=== PATIENT | female | born 1975 | race Caucasian/White ===

== ENCOUNTER → 2017-05-15 | Outpatient (CLI) | payer OTHER ==
[~2017-05-15] MED LIST: CLIN-62; CODE-54; HYDR-3583; HYOS0.1283 SL; LEVOTHYROXINE; METH4TAB PO; ONDA4TAB8 PO; PANT40TA2 PO; PENICILLIN; [UNRECOGNIZED DRUG - OTHER]
--- NOTE | 2017-05-15 10:40 | Diagnostic Imaging Report ---
EXAMINATION: Bilateral diagnostic mammography with a Computer Aided Detection (CAD) system. COMPARISON: 07/09/2014. INDICATION: Bilateral palpable lumps. FINDINGS: The breasts are composed of extremely dense parenchyma which would decrease mammographic sensitivity. At the lateral aspect of the left breast, there is a palpable area marked with a BB with an underlying circumscribed lobulated mass. This was seen on the 2013 exam and is probably the same lesion, most likely a cyst. The right breast demonstrates a marker at the medial aspect with no definite underlying lesion seen by mammography. At posterior depth of the medial aspect of the right breast, there is a circumscribed mass also seen. This is not well appreciated on the previous exam. No suspicious calcifications. IMPRESSION: Bilateral circumscribed breast masses in the lateral aspect of the left breast and medial aspect of the right breast are favored to be benign such as cysts. An ultrasound evaluation is pending. ACR BI-RADS Category 0: Incomplete. (Needs additional imaging evaluation). Result letter will be mailed to the patient. Note: At least 10% of breast cancer is not imaged by mammography. Dictated by: Dictated on workstation # [id number]
--- NOTE | 2017-05-15 10:42 | Diagnostic Imaging Report ---
EXAMINATION: Bilateral breast ultrasound. INDICATION: Bilateral palpable lumps and masses seen on mammography. FINDINGS: In the left breast at the 1:30 o'clock position 7 cm from the nipple, there is a 1.8 x 1.1 x 2.4 cm cyst with minimal internal debris. No solid component or internal vascularity is seen. Through transmission is noted. In the right breast, the palpable area corresponds with a 7 mm simple cyst at the 4 o'clock zone 5 cm from the nipple. IMPRESSION: The palpable lumps correspond to simple and minimally complicated cysts with no solid lesion seen. Annual screening mammograms are recommended. ACR BI-RADS Category 2: Benign findings. Dictated by: Dictated on workstation # [id number]
== END ==
LOC: RAD 08:27
PROVIDERS: ATTEND Family Medicine
DX: N60.11 Diffuse cystic mastopathy of right breast (principal)
CPT/HCPCS: 76642; 77066

== ENCOUNTER 2019-08-14 16:48 | Emergency (ER) | payer SELFPAY ==
[~2019-08-14] VITALS: Ht 157 cm; Wt 61.5 kg
[2019-08-14] MEDS ORDERED: ANTACID SUSP 30 ML UDC (MYLANTA) PO ONE (17:15)
[2019-08-14] MEDS ORDERED: LIDOCAINE 2% VISCOUS 15 ML UDC PO ONE (17:15)
[2019-08-14] MEDS ORDERED: ONDANSETRON 4 MG/2 ML (SDV) Z0FRAN IVP ONE (17:15)
[2019-08-14] MEDS ORDERED: LEVO88TA54 (17:15)
--- NOTE | 2019-08-14 17:15 | ED Abdominal Pain ---
General Chief Complaint: Abdominal/GI Problems Stated Complaint: ABD PAIN Nursing Triage Note: EPIGASTRIC PAIN THAT RADIATES INTO BACK WITH NAUSEA STARTING ONE WEEK AGO. Sepsis Screen: No Definite Risk Source of Information: Patient Exam Limitations: No Limitations History of Present Illness Date Seen by Provider: Aug 14, 2019 Time Seen by Provider: 16:56 Initial Comments To ER with reports of epigastric abdominal pain that radiates straight through to her back times one week constant and she cannot identify any exacerbating or alleviating factors. She's had nausea without vomiting, she's had normal bowel movements. No fevers or chills no history of this. She has also had fatigue. She saw her primary care provider one week ago for the fatigue but didn't mention the abdominal pain because she assumed it to just be from bloating at that time. Timing/Duration: 1 Week Severity/Quality: Moderate Location: Epigastric Radiation: No Radiation Activities at Onset: None Associated Symptoms: Fatigue, Nausea/Vomiting Allergies and Home Medications Allergies Coded Allergies: clindamycin (Verified Adverse Reaction, Intermediate, SWOLLEN TONGUE, RASH, 07/17/16) Home Medications Cefuroxime Axetil 250 Mg Tablet, 250 MG PO BID Prescribed by: KIRTI BAKER on 08/14/19 1821 Patient Home Medication List Home Medication List Reviewed: Yes Review of Systems Review of Systems Constitutional: see HPI, malaise EENTM: No Symptoms Reported Cardiovascular: No Symptoms Reported Gastrointestinal: See HPI, Abdominal Pain; Denies Constipated, Denies Diarrhea; Nausea Genitourinary: No Symptoms Reported Musculoskeletal: no symptoms reported Skin: no symptoms reported Psychiatric/Neurological: No Symptoms Reported Endocrine: No Symptoms Reported Hematologic/Lymphatic: No Symptoms Reported Past Gorfnzi-Hftjjf-Uwgvib Hx Patient Social History Alcohol Use: Denies Use Recreational Drug Use: No Smoking Status: Current Everyday Smoker Type Used: Cigarettes Recent Foreign Travel: No Contact w/Someone Who Travel: No Recent Infectious Disease Expo: No Recent Hopitalizations: No Seasonal Allergies Seasonal Allergies: No Past Medical History Surgeries: Yes Abdominal, Breast, Ear Surgery, Renal, Tubal Ligation Respiratory: No Cardiac: No Neurological: No : No Last Menstrual Period: Aug 14, 2019 Reproductive Disorders: No CHHA History: Tubal Ligation Gastrointestinal: No Musculoskeletal: No Endocrine: Yes (DAR'S / GRAVE'S DISEASE) Hypothyroidsim Cancer: No Psychosocial: Yes Sleep Difficulties, Anxiety Integumentary: No Blood Disorders: No Physical Exam Vital Signs Vital Signs - First Documented 08/14/19 16:55 Temp 36.7 Pulse 121 Resp 16 B/P (MAP) 168/105 (126) Pulse Ox 99 O2 Delivery Room Air Capillary Refill : Less Than 3 Seconds Height/Weight/BMI Height: 5'2" Weight: 134lbs. oz. 60.331392ds; 24.00 BMI Method:Stated General Appearance: WD/WN, no apparent distress HEENT: PERRL/EOMI, normal ENT inspection Respiratory: no respiratory distress, no accessory muscle use Gastrointestinal: normal bowel sounds, soft, tenderness (epigastric. Midline abdominal incision from a remote history of nephropexy. Otherwise no abdominal surgeries.) Extremities: normal range of motion, non-tender Neurologic/Psychiatric: alert, normal mood/affect, oriented x 3 Skin: normal color, warm/dry Progress/Results/Core Measures Results/Orders Lab Results Laboratory Tests Test 08/14/19 17:09 08/14/19 17:35 Range/Units White Blood Count 10.2 4.3-11.0 10^3/uL Red Blood Count 3.96 L 4.35-5.85 10^6/uL Hemoglobin 13.4 11.5-16.0 G/DL Hematocrit 39 35-52 % Mean Corpuscular Volume 99 80-99 FL Mean Corpuscular Hemoglobin 34 25-34 PG Mean Corpuscular Hemoglobin Concent 34 32-36 G/DL Red Cell Distribution Width 12.4 10.0-14.5 % Platelet Count 325 130-400 10^3/uL Mean Platelet Volume 9.8 7.4-10.4 FL Neutrophils (%) (Auto) 60 42-75 % Lymphocytes (%) (Auto) 31 12-44 % Monocytes (%) (Auto) 7 0-12 % Eosinophils (%) (Auto) 1 0-10 % Basophils (%) (Auto) 1 0-10 % Neutrophils # (Auto) 6.1 1.8-7.8 X 10^3 Lymphocytes # (Auto) 3.2 1.0-4.0 X 10^3 Monocytes # (Auto) 0.7 0.0-1.0 X 10^3 Eosinophils # (Auto) 0.1 0.0-0.3 10^3/uL Basophils # (Auto) 0.1 0.0-0.1 10^3/uL Sodium Level 140 135-145 MMOL/L Potassium Level 3.4 L 3.6-5.0 MMOL/L Chloride Level 110 H 98-107 MMOL/L Carbon Dioxide Level 20 L 21-32 MMOL/L Anion Gap 10 5-14 MMOL/L Blood Urea Nitrogen 10 7-18 MG/DL Creatinine 0.84 0.60-1.30 MG/DL Estimat Glomerular Filtration Rate > 60 BUN/Creatinine Ratio 12 Glucose Level 97 70-105 MG/DL Calcium Level 9.4 8.5-10.1 MG/DL Corrected Calcium 8.5-10.1 MG/DL Total Bilirubin 0.5 0.1-1.0 MG/DL Aspartate Amino Transf (AST/SGOT) 13 5-34 U/L Alanine Aminotransferase (ALT/SGPT) 13 0-55 U/L Alkaline Phosphatase 53 40-136 U/L Total Protein 7.2 6.4-8.2 GM/DL Albumin 4.6 H 3.2-4.5 GM/DL Lipase 15 8-78 U/L Thyroid Stimulating Hormone (TSH) 9.54 H 0.35-4.94 UIU/ML Free Thyroxine 1.18 0.70-1.48 NG/DL Urine Color RED H Urine Clarity BLOODY H Urine pH 5.0 5-9 Urine Specific [place] 1.025 H 1.016-1.022 Urine Protein 3+ H NEGATIVE Urine Glucose (UA) TRACE H NEGATIVE Urine Ketones 2+ H NEGATIVE Urine Nitrite POSITIVE NEGATIVE Urine Bilirubin NEGATIVE NEGATIVE Urine Urobilinogen 4.0 < = 1.0 MG/DL Urine Leukocyte Esterase 2+ H NEGATIVE Urine RBC (Auto) 3+ H NEGATIVE Urine RBC TNTC H /HPF Urine WBC 50-100 H /HPF Urine Crystals NONE /LPF Urine Bacteria FEW H /HPF Urine Casts NONE /LPF Urine Mucus NEGATIVE /LPF Urine Culture Indicated YES My Orders Orders - KIRTI BAKER APRN Cbc With Automated Diff (08/14/19 17:08) Comprehensive Metabolic Panel (08/14/19 17:08) Lipase (08/14/19 17:08) Ua Culture If Indicated (08/14/19 17:08) Thyroid Stimulating Hormone (08/14/19 17:08) Free T4 (Free Thyroxine) (08/14/19 17:08) Ed Iv/Invasive Line Start (08/14/19 17:08) Ct Abdomen/Pelvis W (08/14/19 17:08) Antacid Suspension (Mylanta Suspension (08/14/19 17:15) Lidocaine 2% Viscous 15 Ml (Xylocaine Vi (08/14/19 17:15) Ondansetron Injection (Zofran Injectio (08/14/19 17:15) Iohexol Injection (Omnipaque 350 Mg/Ml 1 (08/14/19 17:30) Received Contrast (Hold Metformin- Contr (08/14/19 17:30) Ns (Ivpb) (Sodium Chloride 0.9% Ivpb Bag (08/14/19 17:30) Urine Culture (08/14/19 17:35) Medications Given in ED Current Medications Medications Dose Ordered Sig/Christiana Route Start Time Stop Time Status Last Admin Dose Admin Al Hydrox/Mg Hydrox/Simethicone 30 ml ONCE ONCE PO 08/14/19 17:15 08/14/19 17:16 DC 08/14/19 17:19 30 ML Iohexol 100 ml ONCE ONCE IV 08/14/19 17:30 08/14/19 17:31 DC 08/14/19 17:48 77 ML Lidocaine HCl 10 ml ONCE ONCE PO 08/14/19 17:15 08/14/19 17:16 DC 08/14/19 17:19 10 ML Ondansetron HCl 8 mg ONCE ONCE IVP 08/14/19 17:15 08/14/19 17:16 DC 08/14/19 17:20 8 MG Sodium Chloride 100 ml ONCE ONCE IV 08/14/19 17:30 08/14/19 17:31 DC 08/14/19 17:49 80 ML Vital Signs/I&O 08/14/19 16:55 Temp 36.7 Pulse 121 Resp 16 B/P (MAP) 168/105 (126) Pulse Ox 99 O2 Delivery Room Air Blood Pressure Mean: 126 Diagnostic Imaging Diagonstic Imaging: CT Comments 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 TECHNIQUE: Multiple contiguous axial images were obtained through the abdomen and pelvis after administration of intravenous contrast. Auto Exposure Controls were utilized during the CT exam to meet ALARA standards for radiation dose reduction. INDICATION: Epigastric pain. COMPARISON: 07/17/2016. FINDINGS: Lung bases are clear. The liver, gallbladder, pancreas, spleen, adrenals, kidneys, collecting systems and bladder are negative. No free intraperitoneal air or fluid. No lymphadenopathy. No evidence of bowel obstruction or inflammation. Normal appendix. Reproductive structures are grossly unremarkable. No lymphadenopathy. No acute osseous findings. IMPRESSION: No acute CT findings in the abdomen or pelvis. Dictated on workstation # [id number] Dict: 08/14/19 1759 Trans: 08/14/19 1808 [facility] [id number] Interpreted by: SHERRI ALFREDO MD Electronically signed by: Departure Communication (Admissions) Marked hematuria, she is on her menstrual periods however. 1830-She states that she does follow with Jimbo Rosario now instead of Dr. Chun. I set her up with a outpatient order for hepatobiliary scan with results to be sent to Dr. Jimbo Rosario. Impression Primary Impression: Epigastric abdominal pain Disposition: HOME, SELF-CARE Condition: Stable Departure-Patient Inst. Decision time for Depature: 18:20 Referrals: DILCIA CHUN DO (PCP/Family) Primary Care Physician Patient Instructions: Acute Abdomen (Belly Pain), Adult (DC), Urinary Tract Infection, Adult (DC) Add. Discharge Instructions: 1. Antibiotics as directed 2. Follow-up with Dr. Chun. Call tomorrow for an appointment. I'll fax your records to them. All discharge instructions reviewed with patient and/or family. Voiced understanding. Scripts Cefuroxime Axetil (Cefuroxime) 250 Mg Tablet 250 MG PO BID, #10 TAB Prov: KIRTI BAKER APRN 08/14/19 Copy Copies To 1: JIMBO ROSARIO MD, PETER J APRN Aug 14, 2019 17:15
[2019-08-14 17:17] LABS: BASOPHILS # (AUTO) 0.1 10^3/uL (0.0-0.1); BASOPHILS % (AUTO) 1 % (0-10); EOSINOPHILS # (AUTO) 0.1 10^3/uL (0.0-0.3); EOSINOPHILS % (AUTO) 1 % (0-10); HEMATOCRIT 39 % (35-52); HEMOGLOBIN 13.4 G/DL (11.5-16.0); LYMPHOCYTES # (AUTO) 3.2 X 10^3 (1.0-4.0); LYMPHOCYTES % (AUTO) 31 % (12-44); MEAN CORPUSCULAR HEMOGLOBIN 34 PG (25-34); MEAN CORPUSCULAR HGB CONC 34 G/DL (32-36); MEAN CORPUSCULAR VOLUME 99 FL (80-99); MEAN PLATELET VOLUME 9.8 FL (7.4-10.4); MONOCYTES # (AUTO) 0.7 X 10^3 (0.0-1.0); MONOCYTES % (AUTO) 7 % (0-12); NEUTROPHILS # (AUTO) 6.1 X 10^3 (1.8-7.8); NEUTROPHILS % (AUTO) 60 % (42-75); PLATELET COUNT 325 10^3/uL (130-400); RED CELL DISTRIBUTION WIDTH 12.4 % (10.0-14.5); WHITE BLOOD COUNT 10.2 10^3/uL (4.3-11.0)
[2019-08-14] MEDS ORDERED: HOLD METFORMIN - RECEIVED CONTRAST 20 ML VIAL IV SCH (17:30)
[2019-08-14] MEDS ORDERED: NS 100 ML (IVPB) BAG IV ONE (17:30)
[2019-08-14] MEDS ORDERED: IOHEXOL 350 MG/ML 100 ML (OMNIPAQUE 350) VIAL IV ONE (17:30)
[2019-08-14 17:45] LABS: ALANINE AMINOTRANSFERASE 13 U/L (0-55); ALBUMIN 4.6 GM/DL (3.2-4.5); ALKALINE PHOSPHATASE 53 U/L (40-136); BILIRUBIN,TOTAL 0.5 MG/DL (0.1-1.0); BUN/CREATININE RATIO 12; CALCIUM 9.4 MG/DL (8.5-10.1); CARBON DIOXIDE 20 MMOL/L (21-32); CHLORIDE 110 MMOL/L (98-107); CREATININE SERUM 0.84 MG/DL (0.60-1.30); GFR ESTIMATED > 60; GLUCOSE 97 MG/DL (70-105); LIPASE 15 U/L (8-78); POTASSIUM 3.4 MMOL/L (3.6-5.0); SODIUM 140 MMOL/L (135-145); TOTAL PROTEIN 7.2 GM/DL (6.4-8.2)
[2019-08-14 17:49] LABS: BILIRUBIN,URINE NEGATIVE (NEGATIVE); GLUCOSE, URINE (UA) TRACE (NEGATIVE); KETONES,URINE 2+ (NEGATIVE); LEUKOCYTE ESTERASE ,URINE 2+ (NEGATIVE); NITRITE,URINE POSITIVE (NEGATIVE); PROTEIN,URINE 3+ (NEGATIVE)
[2019-08-14 17:53] LABS: CLARITY,URINE BLOODY; COLOR,URINE RED
[2019-08-14 17:54] LABS: RBC,URINE TNTC /HPF
[2019-08-14 17:59] LABS: WBC,URINE 50-100 /HPF
[2019-08-14 18:00] LABS: BACTERIA,URINE FEW /HPF
[2019-08-14 18:05] LABS: FREE T4 (FREE THYROXINE) 1.18 NG/DL (0.70-1.48)
--- NOTE | 2019-08-14 18:09 | Diagnostic Imaging Report ---
PROCEDURE: CT abdomen and pelvis with contrast. TECHNIQUE: Multiple contiguous axial images were obtained through the abdomen and pelvis after administration of intravenous contrast. Auto Exposure Controls were utilized during the CT exam to meet ALARA standards for radiation dose reduction. INDICATION: Epigastric pain. COMPARISON: 07/17/2016. FINDINGS: Lung bases are clear. The liver, gallbladder, pancreas, spleen, adrenals, kidneys, collecting systems and bladder are negative. No free intraperitoneal air or fluid. No lymphadenopathy. No evidence of bowel obstruction or inflammation. Normal appendix. Reproductive structures are grossly unremarkable. No lymphadenopathy. No acute osseous findings. IMPRESSION: No acute CT findings in the abdomen or pelvis. Dictated by: Dictated on workstation # [id number]
[2019-08-14] MEDS ORDERED: CEFU250T80 PO (18:21)
[2019-08-14 18:30] VITALS: BP 123/74
== END 2019-08-14 18:30 | disposition home or self-care (01) ==
LOC: EDUNIT# 16:48 → ER 16:50
DX: R10.13 Epigastric pain (principal); E03.9 Hypothyroidism, unspecified; F41.9 Anxiety disorder, unspecified; F17.210 Nicotine dependence, cigarettes, uncomplicated; Z88.1 Allergy status to other antibiotic agents; Z98.51 Tubal ligation status
CPT/HCPCS: 36415; 74177; 80053; 81000; 83690; 84439; 84443; 85025; 87088; 96374

== ENCOUNTER 2020-02-09 10:23 | Emergency (ER) | payer SELFPAY ==
[~2020-02-09] VITALS: Ht 157.5 cm; Wt 67.1 kg
[~2020-02-09 10:23] MED LIST changes: +CEFU250T80 PO; +LEVO88TA54
--- NOTE | 2020-02-09 10:45 | NUR ---
Covid-19 swab obtained by this RN et walked to lab by edie.
--- NOTE | 2020-02-09 10:46 | ED Cough/URI ---
General Stated Complaint: COUGH/SOB Source: patient Exam Limitations: no limitations History of Present Illness Date Seen by Provider: Feb 09, 2020 Time Seen by Provider: 10:43 Initial Comments to ER with a four-day history of productive cough, low-grade fever not above 100, runny nose, sore throat. 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 One of her patients was swabbed for coronavirus on Monday of last week but has not gotten the results yet. Patient does smoke one half pack of cigarettes per day. she Suspects that she has bronchitis because she's had this before. Timing/Duration: constant Severity/Quality: productive cough Associated Symptoms: cough, fever/chills, shortness of breath, sore throat Allergies and Home Medications Allergies Coded Allergies: clindamycin (Verified Adverse Reaction, Intermediate, SWOLLEN TONGUE, RASH, 07/17/16) Home Medications Albuterol Sulfate 1 Puff Puff, 2 PUFF IH Q4H PRN for WHEEZING 1 PUFF = 90 MCG Prescribed by: KIRTI BAKER on 02/09/20 1050 Cefuroxime Axetil 250 Mg Tablet, 250 MG PO BID Prescribed by: KIRTI BAKER on 08/14/19 1821 Cefuroxime Axetil 500 Mg Tablet, 500 MG PO BID Prescribed by: KIRTI BAKER on 02/09/20 1050 Guaifenesin/Dextromethorphan 1 Each Tbmp.12hr, 1 EACH PO BID Prescribed by: KIRTI BAKER on 02/09/20 1050 Patient Home Medication List Home Medication List Reviewed: Yes Review of Systems Review of Systems Constitutional: see HPI, malaise EENTM: see HPI, nose congestion, throat pain Respiratory: see HPI, cough, short of breath Cardiovascular: no symptoms reported Genitourinary: no symptoms reported Musculoskeletal: no symptoms reported Skin: no symptoms reported Psychiatric/Neurological: No Symptoms Reported Hematologic/Lymphatic: No Symptoms Reported Immunological/Allergic: no symptoms reported Past Uaydueh-Tsaqrv-Inodvr Hx Patient Social History Type Used: Cigarettes Recent Hopitalizations: No Seasonal Allergies Seasonal Allergies: No Past Medical History Surgeries: Yes Abdominal, Breast, Ear Surgery, Renal, Tubal Ligation Respiratory: No Cardiac: No Neurological: No 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 oz. 60.867922hy; 24.00 BMI Method:Stated General Appearance: WD/WN, no apparent distress, other (is alert and oriented speaks in full sentences oxygen saturation 98% on room air her right little high at 115. She did cough and expectorate somepurulent phlegm.) Eyes: Bilateral Eye Normal Inspection, Bilateral Eye PERRL, Bilateral Eye EOMI HEENT: PERRL/EOMI, normal ENT inspection Neck: non-tender, full range of motion Respiratory: normal breath sounds, no respiratory distress, no accessory muscle use Cardiovascular: no murmur, tachycardia Gastrointestinal: normal bowel sounds, soft Neurologic/Psychiatric: alert, normal mood/affect, oriented x 3 Skin: normal color Progress/Results/Core Measures Suspected Sepsis SIRS Temperature: Pulse: Respiratory Rate: Laboratory Tests 02/09/20 10:45: White Blood Count 7.3 Blood Pressure / Mean: Laboratory Tests 02/09/20 10:45: Creatinine 0.77, Platelet Count 278 Results/Orders Lab Results Laboratory Tests Test 02/09/20 10:45 Range/Units White Blood Count 7.3 4.3-11.0 10^3/uL Red Blood Count 4.04 L 4.35-5.85 10^6/uL Hemoglobin 13.4 11.5-16.0 G/DL Hematocrit 39 35-52 % Mean Corpuscular Volume 97 80-99 FL Mean Corpuscular Hemoglobin 33 25-34 PG Mean Corpuscular Hemoglobin Concent 34 32-36 G/DL Red Cell Distribution Width 12.5 10.0-14.5 % Platelet Count 278 130-400 10^3/uL Mean Platelet Volume 10.2 7.4-10.4 FL Neutrophils (%) (Auto) 60 42-75 % Lymphocytes (%) (Auto) 26 12-44 % Monocytes (%) (Auto) 9 0-12 % Eosinophils (%) (Auto) 4 0-10 % Basophils (%) (Auto) 1 0-10 % Neutrophils # (Auto) 4.4 1.8-7.8 X 10^3 Lymphocytes # (Auto) 1.9 1.0-4.0 X 10^3 Monocytes # (Auto) 0.7 0.0-1.0 X 10^3 Eosinophils # (Auto) 0.3 0.0-0.3 10^3/uL Basophils # (Auto) 0.1 0.0-0.1 10^3/uL Sodium Level 137 135-145 MMOL/L Potassium Level 4.0 3.6-5.0 MMOL/L Chloride Level 106 98-107 MMOL/L Carbon Dioxide Level 19 L 21-32 MMOL/L Anion Gap 12 5-14 MMOL/L Blood Urea Nitrogen 12 7-18 MG/DL Creatinine 0.77 0.60-1.30 MG/DL Estimat Glomerular Filtration Rate > 60 BUN/Creatinine Ratio 16 Glucose Level 91 70-105 MG/DL Calcium Level 9.2 8.5-10.1 MG/DL C-Reactive Protein High Sensitivity 1.34 H 0.00-0.50 MG/DL Procalcitonin 0.02 <0.10 NG/ML My Orders Orders - KIRTI BAKER APRN Sputum Culture (02/09/20 10:41) Cbc With Automated Diff (02/09/20 10:41) Basic Metabolic Panel (02/09/20 10:41) Hcg,Qualitative Serum (02/09/20 10:41) Ed Iv/Invasive Line Start (02/09/20 10:41) Hs C Reactive Protein (02/09/20 10:41) Procalcitonin (Pct) (02/09/20 10:41) Chest 1 View, Ap/Pa Only (02/09/20 10:41) Coronavirus Sars-Cov-2 So 2018 (02/09/20 10:41) Ns Iv 1000 Ml (Sodium Chloride 0.9%) (02/09/20 11:15) Ketorolac Injection (Toradol Injection) (02/09/20 11:15) Dexamethasone Injection (Decadron Inject (02/09/20 11:15) Ceftriaxone For Iv Use (Rocephin For I (02/09/20 11:15) Ekg Tracing (02/09/20 11:19) Medications Given in ED Current Medications Medications Dose Ordered Sig/Christiana Route Start Time Stop Time Status Last Admin Dose Admin Ceftriaxone Sodium 1000 mg/ Sterile Water 10 ml @ 200 mls/hr ONCE ONCE IV 02/09/20 11:15 02/09/20 11:17 DC 7/12/20 11:12 200 MLS/HR Dexamethasone Sodium Phosphate 10 mg ONCE ONCE IV 02/09/20 11:15 02/09/20 11:16 DC 02/09/20 11:12 10 MG Ketorolac Tromethamine 15 mg ONCE ONCE IVP 02/09/20 11:15 02/09/20 11:16 DC 02/09/20 11:12 15 MG Vital Signs/I&O 02/09/20 02/09/20 10:36 10:36 Temp 37.0 Pulse 117 Resp 20 B/P (MAP) 146/88 (107) Pulse Ox 98 O2 Delivery Room Air Room Air Capillary Refill : Departure Impression Primary Impression: Bronchitis Disposition: HOME, SELF-CARE Condition: Stable Departure-Patient Inst. Decision time for Depature: 10:45 Referrals: JIMBO ROSARIO MD (PCP/Family) Primary Care Physician Patient Instructions: Acute Bronchitis Add. Discharge Instructions: 1. Go home and quarantine away from family and friends until fluid results are back in about 24-48 hours typically. Antibiotics and inhaler as directed. Return to ER for any concerns. Scripts Cefuroxime Axetil (Cefuroxime) 500 Mg Tablet 500 MG PO BID, #14 TAB Prov: KIRTI BAKER APRN 02/09/20 Guaifenesin/Dextromethorphan (Mucinex Dm ER 1,200-60 mg Tab) 1 Each Tbmp.12hr 1 EACH PO BID, #14 EA Prov: KIRTI BAKER APRN 02/09/20 Albuterol Sulfate (PROAIR HFA) 1 Puff Puff 2 PUFF IH Q4H PRN for WHEEZING, #1 PUFF 1 PUFF = 90 MCG Prov: KIRTI BAKER APRN 02/09/20 Work/School Note: Work Release Form Date Seen in the Emergency Department: Feb 09, 2020 Return to Work: Feb 12, 2020 KIRTI BAKER APRN Feb 09, 2020 10:46
[2020-02-09] MEDS ORDERED: GUAI1TBM19 PO (10:50)
[2020-02-09] MEDS ORDERED: CEFU500T63 PO (10:50)
[2020-02-09] MEDS ORDERED: RT-ALBUINH IH (10:50)
[2020-02-09 11:02] LABS: BASOPHILS # (AUTO) 0.1 10^3/uL (0.0-0.1); BASOPHILS % (AUTO) 1 % (0-10); EOSINOPHILS # (AUTO) 0.3 10^3/uL (0.0-0.3); EOSINOPHILS % (AUTO) 4 % (0-10); HEMATOCRIT 39 % (35-52); HEMOGLOBIN 13.4 G/DL (11.5-16.0); LYMPHOCYTES # (AUTO) 1.9 X 10^3 (1.0-4.0); LYMPHOCYTES % (AUTO) 26 % (12-44); MEAN CORPUSCULAR HEMOGLOBIN 33 PG (25-34); MEAN CORPUSCULAR HGB CONC 34 G/DL (32-36); MEAN CORPUSCULAR VOLUME 97 FL (80-99); MEAN PLATELET VOLUME 10.2 FL (7.4-10.4); MONOCYTES # (AUTO) 0.7 X 10^3 (0.0-1.0); MONOCYTES % (AUTO) 9 % (0-12); NEUTROPHILS # (AUTO) 4.4 X 10^3 (1.8-7.8); NEUTROPHILS % (AUTO) 60 % (42-75); PLATELET COUNT 278 10^3/uL (130-400); RED CELL DISTRIBUTION WIDTH 12.5 % (10.0-14.5); WHITE BLOOD COUNT 7.3 10^3/uL (4.3-11.0)
[2020-02-09 11:13] LABS: CHLORIDE 106 MMOL/L (98-107); SODIUM 137 MMOL/L (135-145)
[2020-02-09 11:14] LABS: CALCIUM 9.2 MG/DL (8.5-10.1)
[2020-02-09 11:15] LABS: GLUCOSE 91 MG/DL (70-105)
[2020-02-09] MEDS ORDERED: NS IV 1000 ML 1,000 ML IV SCH (11:15)
[2020-02-09] MEDS ORDERED: KETOROLAC 30 MG/ML VIAL IVP ONE (11:15)
[2020-02-09] MEDS ORDERED: DEXAMETHASONE 10 MG/ML (DECADRON) 1 ML VIAL IV ONE (11:15)
[2020-02-09] MEDS ORDERED: cefTRIAXone FOR IV USE 1,000 MG in WATER (STERILE) FOR INJECTION 10 ML IV ONE (11:15)
[2020-02-09 11:16] LABS: CARBON DIOXIDE 19 MMOL/L (21-32)
[2020-02-09 11:18] LABS: CREATININE SERUM 0.77 MG/DL (0.60-1.30); GFR ESTIMATED > 60
[2020-02-09 11:19] LABS: BUN/CREATININE RATIO 16
--- NOTE | 2020-02-09 11:30 | NUR ---
Pt reports L sided chest discomfort. Provider notified et 'O' EKG. Pt reports she does not want EKG performed stating, "I don't think I need that." Risks et benefits or EKG reviewed with pt and pt continues to refuse EKG. Provider notifiefd.
--- NOTE | 2020-02-09 11:35 | Diagnostic Imaging Report ---
EXAMINATION: Chest radiograph, portable AP view. DATE: 02/09/2020 11:15 AM hours. INDICATION: 44-year-old female, shortness breath, cough. COMPARISON: January 06, 2014. FINDINGS: Stable overall appearance of the cardiomediastinal silhouette. There is no identified pneumothorax. There is no large pleural effusion. There is no identified focal airspace consolidation. IMPRESSION: No radiographically apparent acute cardiopulmonary abnormality. Dictated by: Dictated on workstation # [id number]
[2020-02-09 11:50] VITALS: BP 122/83
== END 2020-02-09 11:50 | disposition home or self-care (01) ==
LOC: EDUNIT# 10:23 → ER 10:24
DX: J40 Bronchitis, not specified as acute or chronic (principal); F17.210 Nicotine dependence, cigarettes, uncomplicated; Z20.828 Contact with and (suspected) exposure to other viral communicable diseases; Z88.1 Allergy status to other antibiotic agents
CPT/HCPCS: 71045; 80048; 84145; 84703; 85025; 86141; 87070; 87205; 99284; U0002; 36415; 87635

== ENCOUNTER 2020-04-25 09:33 | Emergency (ER) | payer BC ==
[~2020-04-25] VITALS: Ht 160 cm; Wt 65.0 kg
[~2020-04-25 09:33] MED LIST changes: +CEFU500T63 PO; +GUAI1TBM19 PO; +RT-ALBUINH IH
--- NOTE | 2020-04-25 10:05 | ED General ---
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 STARTED HAVNG BLURRY VISION. HEART STARTED RACING R ARM BECAME ACHEY DOES HAVE A HX OF ANXIETY. Nursing Sepsis Screen: No Definite Risk Source of Information: Patient History of Present Illness Date Seen by Provider: Apr 25, 2020 Time Seen by Provider: 09:55 Initial Comments Patient is a 44-year-old female who presents to the emergency department today with a chief complaint of blurry vision. Patient states that she noticed this approximately 1 hour ago. She describes her vision as being blurry in the peripheral acevedo. She states it lasted about 20 minutes, went away for 10 and then has come back again. She describes associated right-sided mild headache. She states this is not the worst headache of her life. She denies any nausea or vomiting, problems with balance or coordination. She also is having some associated right arm discomfort that she describes as "an ache". She has no history of coronary artery disease. She is a smoker. She has a history of thyroid disease and is currently on thyroid replacement therapy last medication change was approximately 4 months ago. She denies any recent fevers, chills, cough congestion, nausea vomiting or diarrhea. No sick contacts concerning for COVID. Timing/Duration: 1 Hour Severity: Mild Associated Systoms: No Chest Pain, No Cough, No Diaphoresis, No Fever/Chills; Headaches; No Nausea/Vomiting, No Weakness Allergies and Home Medications Allergies Coded Allergies: clindamycin (Verified Adverse Reaction, Intermediate, SWOLLEN TONGUE, RASH, 07/17/16) Home Medications Albuterol Sulfate 1 Puff Puff, 2 PUFF IH Q4H PRN for WHEEZING 1 PUFF = 90 MCG Prescribed by: KIRTI BAKER on 02/09/20 1050 Cefuroxime Axetil 250 Mg Tablet, 250 MG PO BID Prescribed by: KIRTI BAKER on 08/14/191820 Cefuroxime Axetil 500 Mg Tablet, 500 MG PO BID Prescribed by: KIRTI BAKER on 02/09/20 1050 Guaifenesin/Dextromethorphan 1 Each Tbmp.12hr, 1 EACH PO BID Prescribed by: KIRTI BAKER on 02/09/20 1050 Patient Home Medication List Home Medication List Reviewed: Yes Review of Systems Review of Systems Constitutional: no symptoms reported EENTM: blurred vision; No eye pain, No vision loss Respiratory: No cough, No short of breath Cardiovascular: No chest pain, No edema, No palpitations Gastrointestinal: no symptoms reported Genitourinary: no symptoms reported Musculoskeletal: muscle pain (right upper extremity) Skin: no symptoms reported Past Pbbjlvc-Kizaqu-Oifvfx Hx Patient Social History Alcohol Use: Denies Use Recreational Drug Use: No Smoking Status: Former Smoker Type Used: Cigarettes Recent Foreign Travel: No Contact w/Someone Who Travel: No Recent Infectious Disease Expo: No Recent Hopitalizations: No Seasonal Allergies Seasonal Allergies: No Past Medical History Surgeries: Yes Abdominal, Breast, Ear Surgery, Renal, Tubal Ligation Respiratory: No Cardiac: No Neurological: No Reproductive Disorders: No 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 oz. 60.301632gt; 25.00 BMI Method:Stated General Appearance: No Apparent Distress, WD/WN Eyes: Bilateral Eye Normal Inspection, Bilateral Eye PERRL HEENT: PERRL/EOMI, Normal ENT Inspection, Pharynx Normal Neck: Full Range of Motion Respiratory: Chest Non Tender, Lungs Clear, Normal Breath Sounds, No Accessory Muscle Use, No Respiratory Distress Cardiovascular: Regular Rate, Rhythm, No Murmur, Normal Peripheral Pulses, Tachycardia Gastrointestinal: Normal Bowel Sounds, Non Tender, Soft Extremity: Normal Capillary Refill, Normal Inspection, Normal Range of Motion, Non Tender Neurologic/Psychiatric: Alert, Oriented x3, No Motor/Sensory Deficits, 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 Norm as Tested, Other (mildly anxious) Skin: Normal Color Progress/Results/Core Measures Suspected Sepsis Recent Fever Within 48 Hours: No Infection Criteria Present: None New/Unexplained Altered Menta: No Sepsis Screen: No Definite Risk SIRS Temperature: Pulse: 101 Respiratory Rate: 18 Laboratory Tests 04/25/20 10:08: White Blood Count 6.7 Blood Pressure 143 /101 Mean: 115 Laboratory Tests 04/25/20 10:08: Creatinine 0.81, Platelet Count 280 Results/Orders Lab Results Laboratory Tests Test 04/25/20 10:08 Range/Units White Blood Count 6.7 4.3-11.0 10^3/uL Red Blood Count 4.17 3.80-5.11 10^6/uL Hemoglobin 13.5 11.5-16.0 g/dL Hematocrit 41 35-52 % Mean Corpuscular Volume 98 80-99 fL Mean Corpuscular Hemoglobin 32 25-34 pg Mean Corpuscular Hemoglobin Concent 33 32-36 g/dL Red Cell Distribution Width 12.8 10.0-14.5 % Platelet Count 280 130-400 10^3/uL Mean Platelet Volume 9.9 9.0-12.2 fL Immature Granulocyte % (Auto) 0 % Neutrophils (%) (Auto) 63 42-75 % Lymphocytes (%) (Auto) 24 12-44 % Monocytes (%) (Auto) 9 0-12 % Eosinophils (%) (Auto) 2 0-10 % Basophils (%) (Auto) 1 0-10 % Neutrophils # (Auto) 4.3 1.8-7.8 10^3/uL Lymphocytes # (Auto) 1.6 1.0-4.0 10^3/uL Monocytes # (Auto) 0.6 0.0-1.0 10^3/uL Eosinophils # (Auto) 0.2 0.0-0.3 10^3/uL Basophils # (Auto) 0.1 0.0-0.1 10^3/uL Immature Granulocyte # (Auto) 0.0 0.0-0.1 10^3/uL Sodium Level 138 135-145 MMOL/L Potassium Level 4.6 3.6-5.0 MMOL/L Chloride Level 110 H 98-107 MMOL/L Carbon Dioxide Level 18 L 21-32 MMOL/L Anion Gap 10 5-14 MMOL/L Blood Urea Nitrogen 11 7-18 MG/DL Creatinine 0.81 0.60-1.30 MG/DL Estimat Glomerular Filtration Rate > 60 BUN/Creatinine Ratio 14 Glucose Level 92 70-105 MG/DL Calcium Level 9.1 8.5-10.1 MG/DL Thyroid Stimulating Hormone (TSH) 0.29 L 0.35-4.94 UIU/ML Free Thyroxine 1.19 0.70-1.48 NG/DL My Orders Orders - BOYD BEAN MD Basic Metabolic Panel (04/25/20 09:56) Cbc With Automated Diff (04/25/20 09:56) Thyroid Stimulating Hormone (04/25/20 09:56) Ekg Tracing (04/25/20 09:56) Free T4 (Free Thyroxine) (04/25/20 10:55) Ketorolac Injection (Toradol Injection) (04/25/20 11:15) Ketorolac Injection (Toradol Injection) (04/25/20 11:11) Vital Signs/I&O 04/25/20 04/25/20 04/25/20 04/25/20 09:36 10:19 11:20 11:59 Temp 35.7 Pulse 101 87 85 79 Resp 18 18 18 18 B/P (MAP) 143/101 (115) 126/87 (100) 111/77 (88) 114/92 Pulse Ox 100 100 98 98 O2 Delivery Room Air Room Air Room Air Simple Mask Capillary Refill : Less Than 3 Seconds Blood Pressure Mean: 115 Progress Note : Time: 10:17 Progress Note Patient seen and examined. Evaluation today includes a physical exam with neuro exam. Patient complaining of blurry vision and headache. No unilateral or focal weakness complaints. No problems with balance or coordination. She is also complaining of some right arm discomfort. No chest pain. Patient with a history of thyroid disease, on synthroid. Last seen 4 months ago and medications adjusted at that time. Patient admits to a history of anxiety. She was discussing her children at the onset of symptoms. SHe will have CBC, BM7 and Thyroid panel done here in the ED as well as an EKG. 1101 Rechecked patient; TSH and free T4 still pending. resting comfortably. CBC and BM7 all WNL except for CO2 slightly low at 18. Consistent with likely anxiety/hyperventilatory. Also BP down to 188 systolic. She states symptoms are almost completely gone. 1157 patient reevaluated, headache is completely resolved patient states that she feels much better than she did when she first came in. Labs have been reviewed are all within normal limits including her TSH and free T4. Patient is encouraged to follow-up with her primary doctor regarding elevations of blood pressure. She verbalized understanding. She is also encouraged to quit smoking. All questions were sought and answered and she is stable for discharge. ECG Initial ECG Impression Date: Apr 25, 2020 Initial ECG Impression Time: 10:09 Initial ECG Rate: 100 Initial ECG Rhythm: S.Tach Initial ECG Intervals: QT (445) Initial ECG Impression: Normal Initial ECG Comparisson: No Previous ECG Available Counseling-Symptomatic: 3-10 Minutes Follow-up with PCP to: Discuss Further Options Departure Impression Primary Impression: Blurry vision, bilateral Additional Impressions: Elevated blood pressure reading Anxiety Disposition: 01 HOME, SELF-CARE Condition: Stable Departure-Patient Inst. Decision time for Depature: 11:58 Referrals: JIMBO ROSARIO MD (PCP/Family) Primary Care Physician Patient Instructions: High Blood Pressure in Adults, Anxiety, Adult (DC) Add. Discharge Instructions: Please follow-up with your primary care doctor regarding her blood pressure. Continue to take all medications as previously prescribed. Come back to the emergency department for any new, concerning or worsening symptoms. All discharge instructions reviewed with patient and/or family. Voiced understanding. Copy Copies To 1: JIMBO ROSARIO MD, KATHRYN M MD Apr 25, 2020 10:05
--- NOTE | 2020-04-25 10:08 | NUR ---
PATIENT WILL KEEP FAMILY UPDATED
[2020-04-25 10:18] LABS: BASOPHILS # (AUTO) 0.1 10^3/uL (0.0-0.1); BASOPHILS % (AUTO) 1 % (0-10); EOSINOPHILS # (AUTO) 0.2 10^3/uL (0.0-0.3); EOSINOPHILS % (AUTO) 2 % (0-10); HEMATOCRIT 41 % (35-52); HEMOGLOBIN 13.5 g/dL (11.5-16.0); LYMPHOCYTES # (AUTO) 1.6 10^3/uL (1.0-4.0); LYMPHOCYTES % (AUTO) 24 % (12-44); MEAN CORPUSCULAR HEMOGLOBIN 32 pg (25-34); MEAN CORPUSCULAR HGB CONC 33 g/dL (32-36); MEAN CORPUSCULAR VOLUME 98 fL (80-99); MEAN PLATELET VOLUME 9.9 fL (9.0-12.2); MONOCYTES # (AUTO) 0.6 10^3/uL (0.0-1.0); MONOCYTES % (AUTO) 9 % (0-12); NEUTROPHILS # (AUTO) 4.3 10^3/uL (1.8-7.8); NEUTROPHILS % (AUTO) 63 % (42-75); PLATELET COUNT 280 10^3/uL (130-400); WHITE BLOOD COUNT 6.7 10^3/uL (4.3-11.0)
[2020-04-25 10:19] VITALS: BP 126/87
[2020-04-25 10:45] LABS: CHLORIDE 110 MMOL/L (98-107); POTASSIUM 4.6 MMOL/L (3.6-5.0); SODIUM 138 MMOL/L (135-145)
[2020-04-25 10:46] LABS: CALCIUM 9.1 MG/DL (8.5-10.1); GLUCOSE 92 MG/DL (70-105)
[2020-04-25 10:48] LABS: CARBON DIOXIDE 18 MMOL/L (21-32)
[2020-04-25 10:50] LABS: CREATININE SERUM 0.81 MG/DL (0.60-1.30); GFR ESTIMATED > 60
--- NOTE | 2020-04-25 10:50 | NUR ---
TO ROOM REPORTS BLURRY VISION HAS IMPROVED REQUEST SOMETHING FOR HEADACHE.
[2020-04-25 10:51] LABS: BUN/CREATININE RATIO 14
[2020-04-25] MEDS ORDERED: KETOROLAC 30 MG/ML VIAL IVP STA (11:11)
[2020-04-25] MEDS ORDERED: KETOROLAC 15 MG/ML VIAL IVP ONE (11:15)
[2020-04-25 11:20] VITALS: BP 111/77
--- NOTE | 2020-04-25 11:43 | NUR ---
PATIENT REPORTS THAT HEADACHE IMPROVED
[2020-04-25 11:59] VITALS: BP 114/92
== END 2020-04-25 12:05 | disposition home or self-care (01) ==
LOC: EDUNIT# 09:33 → ER 09:34
DX: H53.8 Other visual disturbances (principal); F41.9 Anxiety disorder, unspecified; R03.0 Elevated blood-pressure reading, without diagnosis of hypertension; Z88.1 Allergy status to other antibiotic agents; Z87.891 Personal history of nicotine dependence
CPT/HCPCS: 36415; 80048; 84439; 84443; 85025; 93005

== ENCOUNTER → 2021-04-12 | Outpatient (CLI) | payer BC ==
--- NOTE | 2021-04-12 14:22 | Diagnostic Imaging Report ---
INDICATION: Bilateral breast lumps and bilateral breast pain. Comparison is made with prior mammogram from 05/15/2017. The patient's most recent mammograms from [facility] performed 08/20/2019 are not available for comparison. 2-D and 3-D bilateral diagnostic mammography was performed with CAD. There are bilateral subpectoral breast implants. Implant contours are smooth. Both breasts are heterogeneously dense, limiting the sensitivity of mammography. There is a circumscribed mass in the inner aspect of the right breast posterior depth which appears smaller than prior exam and likely diminution of a cyst. There also circumscribed mass in the upper left breast on the MLO view which appears to be slightly smaller on today's study. No new mass or malignant-appearing microcalcifications are seen. Axillae are unremarkable. IMPRESSION: BI-RADS 0 No mammographic features suspicious for malignancy are identified. Even so, directed sonographic interrogation of the areas of pain and lump bilateral breast is recommended and will be performed today. ACR BI-RADS Category 0: Incomplete. (Needs additional imaging evaluation). Result letter will be mailed to the patient. Note: At least 10% of breast cancer is not imaged by mammography. Dictated by: Dictated on workstation # [id number]
--- NOTE | 2021-04-12 15:27 | Diagnostic Imaging Report ---
INDICATION: Bilateral breast lumps and bilateral breast pain. COMPARISON: Correlation is made with the diagnostic mammogram from earlier this same day. FINDINGS: On the right, the area of lump was evaluated which corresponds to the 2 o'clock location 4 cm from the nipple. There is a simple cyst at this location measuring 10 mm x 7 mm. The area of pain was evaluated which corresponds to the 9-12 o'clock location. There is a cyst at the 10 o'clock location 4 cm from the nipple measuring 12 mm x 6 cm x 9 mm. There is also a cyst at the 10 o'clock location 10 cm from the nipple measuring 13 mm x 5 mm x 7 mm. No solid masses are identified. On the left, the area of pain corresponds to the inferior left breast. No sonographic abnormality is seen. The area of lump corresponds to the 2 o'clock location 6 cm from the nipple; however, there is a cyst measuring 6 mm x 5 mm x 5 mm. No solid masses are seen. IMPRESSION: Bilateral breast cysts at the areas of pain and palpable abnormality. No solid or concerning lesions are identified. The patient may return to routine annual screening mammography. ACR BI-RADS Category 2: Benign findings. Result letter will be mailed to the patient. Note: At least 10% of breast cancer is not imaged by mammography. Dictated by: Dictated on workstation # [id number]
== END ==
LOC: RAD 13:45
PROVIDERS: ATTEND Pediatrics
DX: N60.02 Solitary cyst of left breast (principal); N60.01 Solitary cyst of right breast
CPT/HCPCS: 76642; 77066; G0279; 77062

== ENCOUNTER 2022-10-15 11:52 | Emergency (ER) | payer SELFPAY ==
[~2022-10-15] VITALS: Ht 158 cm; Wt 68.0 kg
[~2022-10-15 11:52] MED LIST changes: +ALBU8.5H6 IH; -RT-ALBUINH IH
[2022-10-15] MEDS ORDERED: AMOX1TAB12 PO (12:15)
[2022-10-15] MEDS ORDERED: OXYC1TAB87 PO (12:15)
--- NOTE | 2022-10-15 12:16 | ED EENT ---
History of Present Illness General Chief Complaint: Dental Problems/Pain Stated Complaint: DENTAL PAIN Nursing Triage Note: pt states dental pain, 2 teeth, bottom lt side, pain into jaw and neck, going on all week, scheduled monday to see dentist Source: patient Exam Limitations: no limitations (YESI HERNÁNDEZ) History of Present Illness Date Seen by Provider: Oct 15, 2022 Time Seen by Provider: 12:10 Initial Comments Patient is a 47-year-old female presents ED with left lower dental pain. Patient states she has had pain over the past week. Pain has been constant with radiation to the left side of jaw, ear, right-sided neck. She states when she drinks water she noticed some improvement. She reports sensitivity to fluids. She denies of any fever, facial swelling or redness, nausea vomit, diarrhea. Has been taken Tylenol, ibuprofen and hydrocodone without much improvement. Started on amoxicillin 2 days ago without much improvement. She is scheduled to follow-up with a dentist on Monday and Dr. Mccloud. They are wanting to perform a root canal. She states she has not been able to sleep over the past 2 days (YESI HERNÁNDEZ) Allergies and Home Medications Allergies Coded Allergies: clindamycin (Verified Adverse Reaction, Intermediate, SWOLLEN TONGUE, RASH, 07/17/16) Patient Home Medication List Home Medication List Reviewed: Yes (YESI HERNÁNDEZ) Albuterol Sulfate (Ventolin Hfa) 1 Puff Puff, 2 PUFF IH Q4H PRN for WHEEZING Prescribed by: KIRTI BAKER on 02/09/20 1050 Amoxicillin/Potassium Clav (Amox Tr-K Clv 875-125 mg Tab) 875 Mg-125 Mg Tablet, 1 EACH PO BID Prescribed by: ANNIA PATEL on 10/15/22 1215 Cefuroxime Axetil (Cefuroxime) 250 Mg Tablet, 250 MG PO BID Prescribed by: KIRTI BAKER on 08/14/19 1821 Cefuroxime Axetil (Cefuroxime) 500 Mg Tablet, 500 MG PO BID Prescribed by: KIRTI BAKER on 02/09/20 1050 Guaifenesin/Dextromethorphan (Mucinex Dm ER 1,200-60 mg Tab) 1 Each Tbmp.12hr, 1 EACH PO BID Prescribed by: KIRTI BAKER on 02/09/20 1050 Levothyroxine Sodium (Levothyroxine Sodium) 88 Mcg Tablet, (Reported) Entered as Reported by: SHANNA RAPHAEL on 08/14/19 1715 Oxycodone HCl/Acetaminophen (Percocet 5-325 mg Tablet) 1 Each Tablet, 1 TAB PO Q4H Prescribed by: ANNIA PATEL on 10/15/22 1216 Review of Systems Review of Systems Constitutional: No chills, No diaphoresis, No fever, No malaise, No weakness, No other Eyes: Denies Drainage, Denies Decreased Acuity, Denies Inflammation, Denies Photophobia, Denies Vision Changes, Denies Glasses Ears: Denies Dizziness, Denies Bloody Discharge, Denies Clear Discharge Nose: denies clots, denies congestion, denies pain, denies bloody discharge Mouth: denies loose teeth; pain, swelling Throat: denies pain, denies swelling Respiratory: No cough, No dyspnea on exertion Cardiovascular: No chest pain Gastrointestinal: No abdominal pain, No diarrhea, No nausea, No vomiting Musculoskeletal: No back pain, No joint pain Skin: No change in color (YESI HERNÁNDEZ) Past Phqxsak-Mxqpju-Yovpwd Hx Seasonal Allergies Seasonal Allergies: No (YESI HERNÁNDEZ) Past Medical History Surgeries: Yes Abdominal, Breast, Ear Surgery, Renal, Tubal Ligation Respiratory: No Cardiac: No Neurological: No 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 oz. 60.300524ed; 27.00 BMI Method:Stated General Appearance: WD/WN, no apparent distress Eyes: bilateral eye normal inspection, bilateral eye PERRL, bilateral eye EOMI Ears: bilateral ear auricle normal, bilateral ear canal normal, bilateral ear TM normal Nose: normal inspection Mouth/Throat: normal mouth inspection, pharynx normal, dental tenderness (Left lower molar tenderness. Decay noted. Gingivitis. 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 She followed up with her dentist Dr. Mccloud earlier this week and is scheduled for follow-up on Monday. Dental pain in her left lower jaw for the past week. Similar pain in the past. Patient Was placed on amoxicillin and Tylenol and ibuprofen without much improvement. Continue pain to the left jaw into the left ear. Exam noted decay to the left lower molar with previous fillings. It appears that she had her left lower first molar removed in the past. She did have some gingivitis, receding gumline with decay. No evidence of periodontal abscess. She did not have any facial swelling or redness. Left TM clear. No evidence of Alexander angina. No TMJ tenderness. No mastoid or parotid tenderness. vital signs stable. Concerning for potential dental infection. Possible exposed nerve root resulting in her pain. Sensitivity to cold and warm. She was given a dose of pain medication. Will switch antibiotic to Augmentin. She is allergic clindamycin. Provide a few days worth of pain medication. Refused dental block. (YESI HERNÁNDEZ) Impression Primary Impression: Pain, dental Disposition: HOME, SELF-CARE Condition: Stable Departure-Patient Inst. Decision time for Depature: 12:14 (YESI HERNÁNDEZ) Referrals: JIMBO ROSARIO MD (PCP/Family) Primary Care Physician Patient Instructions: Dental Pain Scripts Oxycodone HCl/Acetaminophen (Percocet 5-325 mg Tablet) 1 Each Tablet 1 TAB PO Q4H for PAIN-MODERATE MDD 6 TABS, #8 TAB Prov: YESI HERNÁNDEZ 10/15/22 Amoxicillin/Potassium Clav (Amox Tr-K Clv 875-125 mg Tab) 875 Mg-125 Mg Tablet 1 EACH PO BID for 7 Days, #14 TAB Prov: YESI HERNÁNDEZ 10/15/22 ATTENDING PHYSICIAN NOTE: I WAS PHYSICALLY PRESENT ER PHYSICIAN, BUT I WAS NOT INVOLVED IN ANY DECISION MAKING OR ANY CARE OF THIS PATIENT, AND I AM NOT COLLABORATING PHYSICIAN. (MARLYN RANGEL DO) YESI HERNÁNDEZ Oct 15, 2022 12:16 MARLYN RANGEL DO Oct 16, 2022 06:41
[2022-10-15 12:21] VITALS: BP 136/93
== END 2022-10-15 12:21 | disposition home or self-care (01) ==
LOC: EDUNIT# 11:52 → ER 11:55
DX: K02.9 Dental caries, unspecified (principal); K05.10 Chronic gingivitis, plaque induced; Z88.0 Allergy status to penicillin; Z28.310 Unvaccinated for COVID-19
CPT/HCPCS: 99283

== ENCOUNTER 2023-05-31 05:38 | Outpatient (CLI) | payer BC ==
[~2023-05-31] VITALS: Ht 158.8 cm; Wt 63.3 kg
[~2023-05-31 05:38] MED LIST changes: +AMOX1TAB12 PO; +OXYC1TAB87 PO
[2023-05-31] MEDS ORDERED: CITA20TA9 PO (16:10)
[2023-05-31] MEDS ORDERED: ALBU0.63 IH (16:10)
[2023-05-31] MEDS ORDERED: PROP10TA8 PO (16:10)
== END 2023-05-31 16:23 | disposition home or self-care (01) ==
LOC: PREOP 05:38
PROVIDERS: ATTEND Surgery
DX: Z01.818 Encounter for other preprocedural examination (principal)

== ENCOUNTER → 2023-06-12 | Outpatient (CLI) | payer BC ==
[~2023-06-12] MED LIST changes: +ALBU0.63 IH; +CITA20TA9 PO; +PROP10TA8 PO
--- NOTE | 2023-06-12 17:28 | Diagnostic Imaging Report ---
EXAMINATION: US Abdomen limited. TECHNIQUE: Multiple real-time grayscale images were obtained over the right upper quadrant in various projections. HISTORY: PrimaryDx R10.11 RIGHT UPPER QUADRANT NOLAN COMPARISON: None available. FINDINGS: Pancreas: The visualized portions of the pancreas are normal. Liver: The liver is normal in echogenicity and contour. No focal lesions are seen. The portal vein is patent with hepatopetal flow. Gallbladder and biliary tree: Gallbladder is normal without wall thickening, pericholecystic fluid, or sonographic Corbett sign. There may be a tiny fixed stone or tumefactive sludge versus small polyp seen along the gallbladder wall measuring up to 0.3 cm. There is no biliary ductal dilation. The common duct measures 0.3 cm. Right kidney: The right kidney is normal without hydronephrosis. Aorta and IVC: The visualized aorta and inferior vena cava are normal. Fluid: No ascites is seen. IMPRESSION: 1. Unremarkable right upper quadrant ultrasound. 2. Possible 0.3 cm fixed stone, polyp, or tumefactive sludge in the gallbladder. Dictated by: Dictated on workstation # [id number]
== END ==
LOC: RAD 10:36
PROVIDERS: ATTEND Surgery
DX: R10.11 Right upper quadrant pain (principal)
CPT/HCPCS: 76705

== ENCOUNTER 2023-06-13 07:22 | Day surgery (SDC) | payer BC ==
[~2023-06-13] VITALS: Ht 158.8 cm; Wt 63.3 kg
[2023-06-13] MEDS ORDERED: LACTATED RINGERS 1,000 ML 1,000 ML IV STA (07:26)
[2023-06-13] MEDS ORDERED: HURRICAINE EXT TUBE (BENZOCAINE) XX PRN (07:30)
[2023-06-13 07:40] VITALS: BP 121/83
[2023-06-13] MEDS ORDERED: MIDAZOLAM INJ 2 MG/2 ML VIAL ONE (07:49)
--- NOTE | 2023-06-13 08:21 | Progress Note-Pre Operative ---
Pre-Operative Progress Note Date H&P Reviewed: Jun 13, 2023 Time H&P Reviewed: 08:03 History & Physical: H&P Reviewed, Patient Examed, No changes noted Pre-Operative Diagnosis: gerd, family hx colon cancer MARLYN TEMPLETON DO Jun 13, 2023 08:21
--- NOTE | 2023-06-13 08:58 | Progress Note-Post Operative ---
Post-Operative Progess Note Surgeon (s)/Powder Line Repairer (s) Surgeon MARLYN TEMPLETON DO Powder Line Repairer: n/a Pre-Operative Diagnosis gerd, family hx colon cancer Post-Operative Diagnosis Gastritis, Hiatal Hernia, Sigmoid polyps, diverticulosis Procedure & Operative Findings Date of Procedure 06/13/23 Procedure Performed/Findings EGD with biopsies, Colonoscopy with hot bx polypectomy x2 Anesthesia Type per MAINTENANCE PLANNER Estimated Blood Loss Estimated blood loss (mL): none Specimens/Packing Specimens Removed Antrum x1, GE x2, Sigmoid x2 MARLYN TEMPLETON DO Jun 13, 2023 08:58
[2023-06-13] MEDS ORDERED: PANT40TA2 PO (08:59)
[2023-06-13 09:00] VITALS: BP 113/73
--- NOTE | 2023-06-13 09:00 | Discharge Inst-Simple/Standard ---
Discharge Inst-Standard Patient Instructions/Follow Up Plan of Care/Instructions/FU: 2 weeks mando Activity as Tolerated: Yes Discharge Diet: Regular Diet (high fiber) MARLYN TEMPLETON DO Jun 13, 2023 09:00
[2023-06-13 09:05] VITALS: BP 118/77
[2023-06-13 09:28] VITALS: BP 118/77
[2023-06-13 09:32] VITALS: BP 118/77
--- NOTE | 2023-06-13 12:57 | Anesthesia-General Post-Op ---
MAC Patient Condition Mental Status/LOC: Same as Preop Cardiovascular: Satisfactory Nausea/Vomiting: Absent Respiratory: Satisfactory Pain: Controlled Complications: Absent Post Op Complications Complications None Follow Up Care/Instructions Patient Instructions None needed. Anesthesiology Discharge Order Discharge Order Patient is doing well, no complaints, stable vital signs, no apparent adverse anesthesia problems. No complications reported per nursing. TOI SALMERON CRNA Jun 13, 2023 12:57
--- NOTE | 2023-06-13 15:33 | OPERATIVE REPORT ---
DATE OF SERVICE: 06/13/2023 PREOPERATIVE DIAGNOSES: Gastroesophageal reflux disease, family history of colon cancer. POSTOPERATIVE DIAGNOSES: Gastritis, hiatal hernia, sigmoid polyps, minimal diverticulosis. PROCEDURE: EGD with biopsies, colonoscopy with hot biopsy polypectomy x2. SURGEON: Marlyn Mohan DO ANESTHESIA: Per [employer]. ESTIMATED BLOOD LOSS: None. COMPLICATIONS: None. INDICATIONS: The patient is a 47-year-old female with GERD and family history of colon cancer. She understands risks and benefits of procedure and wishes to proceed. Consent was signed in chart. DESCRIPTION OF PROCEDURE: The patient was taken to the endoscopy suite. Timeout was performed. Scope was inserted in the mouth, down the esophagus, stomach, into the duodenum without difficulty. No polyps, masses or ulcerations within the duodenum. Scope was slowly retracted back into stomach where it was further insufflated. Slight gastritis appearance. Biopsy of the antrum was obtained. Benign gastric polyp. Scope was retroflexed noting a small hiatal hernia, no other pathology. Scope was returned to its normal position. Scope was then slowly retracted back into the distal esophagus. Biopsy of the GE junction was obtained. No polyps, masses or ulcerations. Scope was slowly retracted back until completely removed. The patient tolerated the procedure well without any complications, was then positioned for colonoscopy. Digital rectal exam was performed. No palpable polyps, masses or ulcerations. Scope was inserted in the rectum, advanced all the way to the cecum with minimal difficulty. Prep was adequate. Scope was slowly retracted back. No polyps, masses or ulcerations in the cecum, ascending, transverse and descending colon. Sigmoid colon had 2 polyps, which hot biopsy polypectomy was performed. Also, minimal diverticulosis. The scope was then continuously retracted back to the rectum, where it was attempted to be retroflexed, but is narrow. Therefore, it was inserted and retracted multiple times, noting no other pathology. Scope was then retracted until completely removed. The patient tolerated the procedure well without complications, taken to recovery room in stable condition. RECOMMENDATIONS: The patient will be started on Protonix 40 mg daily. We will follow up on pathology. The patient will need repeat colonoscopy in 5 years. Any issues before that, be seen at that time. We would recommend high fiber diet for the diverticulosis. Job ID: [id number] DocumentID: [id number] Dictated Date: 06/13/2023 09:00:18 [employer] Driver Date: 06/13/2023 15:30:00 Dictated By: MARLYN MOHAN DO
== END 2023-06-13 09:48 | disposition home or self-care (01) ==
LOC: ENDO 07:22
PROVIDERS: ATTEND Surgery
DX: Z12.11 Encounter for screening for malignant neoplasm of colon (principal); K63.5 Polyp of colon; K57.30 Diverticulosis of large intestine without perforation or abscess without bleeding; K29.70 Gastritis, unspecified, without bleeding; K44.9 Diaphragmatic hernia without obstruction or gangrene; K21.00 Gastro-esophageal reflux disease with esophagitis, without bleeding; F17.210 Nicotine dependence, cigarettes, uncomplicated; Z80.0 Family history of malignant neoplasm of digestive organs
CPT/HCPCS: 84703; 88305